=== PATIENT | male | born 1985 | race Caucasian/White ===

== ENCOUNTER 2018-07-09 10:28 | Emergency (ER) | payer BC, SELFPAY ==
[~2018-07-09] VITALS: Ht 170.2 cm; Wt 79.4 kg
[2018-07-09 10:33] VITALS: BP 135/76
[2018-07-09] MEDS ORDERED: CYCL10TA2 PO (11:11)
--- NOTE | 2018-07-09 11:12 | PHYS DOC ---
Past Medical History Past Medical History: No Pertinent History Additional Information: non smoker Alcohol Use: None Drug Use: None Adult General Chief Complaint Chief Complaint: BACK PAIN OR INJURY HPI HPI Patient is a 33 year old male that presents with lower back pain after lifting shingles over his head yesterday. The pain is located in the left lower portion of his back. He states that it hurt for 5-10 minutes after it happened and then it stopped and started again this AM. He has not tried any medication at home. Pain when he moves is 8/10 and sharp. Review of Systems Review of Systems Constitutional: Denies fever or chills [] Eyes: Denies change in visual acuity, redness, or eye pain [] HENT: Denies nasal congestion or sore throat [] Respiratory: Denies cough or shortness of breath [] Cardiovascular: No additional information not addressed in HPI [] GI: Denies abdominal pain, nausea, vomiting, bloody stools or diarrhea [] : Denies dysuria or hematuria [] Musculoskeletal: Reports back pain but denies joint pain [] Integument: Denies rash or skin lesions [] Neurologic: Denies headache, focal weakness or sensory changes [] Endocrine: Denies polyuria or polydipsia [] Complete systems were reviewed and found to be within normal limits, except as documented in this note. Current Medications Current Medications Current Medications Medications (Trade) Dose Ordered Sig/Myron Start Time Stop Time Status Last Admin Dose Admin Cyclobenzaprine HCl (Flexeril) 10 mg 1X ONCE 07/09/18 11:15 07/09/18 11:16 07/09/18 11:04 10 MG Allergies Allergies Allergies Coded Allergies Type Severity Reaction Last Updated Verified No Known Drug Allergies 07/09/18 No Physical Exam Physical Exam Constitutional: Well developed, well nourished, no acute distress, non-toxic appearance. [] HENT: Normocephalic, atraumatic, bilateral external ears normal, oropharynx moist, no oral exudates, nose normal. [] Eyes: PERRLA, EOMI, conjunctiva normal, no discharge. [] Neck: Normal range of motion, no tenderness, supple, no stridor. [] Cardiovascular:Heart rate regular rhythm, no murmur [] Lungs & Thorax: Bilateral breath sounds clear to auscultation [] Abdomen: Soft, no tenderness, no masses, no pulsatile masses. [] Skin: Warm, dry, no erythema, no rash. [] Back: No tenderness to spine, no step-offs, no CVA tenderness. [] Extremities: No tenderness, no cyanosis, no clubbing, ROM intact, no edema. [] Neurologic: Alert and oriented X 3, normal motor function, normal sensory function, no focal deficits noted. [] Psychologic: Affect normal, judgement normal, mood normal. [] Current Patient Data Vital Signs Vital Signs Date Time Temp Pulse Resp B/P (MAP) Pulse Ox O2 Delivery O2 Flow Rate FiO2 07/09/18 10:33 97.8 58 135/76 (95) 98 Room Air 97.8 EKG EKG [] Radiology/Procedures Radiology/Procedures [] Course & Med Decision Making Course & Med Decision Making Pertinent Labs and Imaging studies reviewed. (See chart for details) Discussed symptoms with patient. Used shared medical decision making and the patient decided that he would wait for xray if it continues. Will treat with muscle relaxer here and then send home on muscle relaxer. Patient is agreeable. Dragon Disclaimer Dragon Disclaimer This electronic medical record was generated, in whole or in part, using a voice recognition dictation system. Departure Departure Impression: Primary Impression: Pain in lower back Disposition: 01 HOME, SELF-CARE Condition: STABLE Referrals: UNKNOWN PCP NAME (PCP) Patient Instructions: Back Pain, Adult Additional Instructions: Follow up with primary care doctor if pain does not improve or come back to ER. Take muscle relaxers and ibuprofen as directed PRN. Scripts Cyclobenzaprine Hcl (CYCLOBENZAPRINE HCL) 10 Mg Tablet 1 TAB PO TID PRN for MUSCLE SPASMS, #30 TAB Prov: MOO NIETO APRN 07/09/18 Problem Qualifiers Primary Impression: Pain in lower back Chronicity: acute Back pain laterality: left Sciatica presence: without sciatica Qualified Codes: M54.5 - Low back pain MOO NIETO APRN July 09, 2018 11:12
[2018-07-09] MEDS ORDERED: CYCLOBENZAPRINE 10 MG TABLET. PO ONE (11:15)
== END 2018-07-09 11:30 | disposition home or self-care (01) ==
LOC: ER 10:28
DX: M54.5 Low back pain (principal)
CPT/HCPCS: 99283

== ENCOUNTER 2019-12-19 22:29 | Emergency (ER) | payer BC ==
[~2019-12-19] VITALS: Ht 170.2 cm; Wt 81.8 kg
[~2019-12-19 22:29] MED LIST: CYCL10TA2 PO
[2019-12-19] MEDS ORDERED: LIDOCAINE 2%/EPI 1:100,000 20 ML VIAL. INJ ONE (22:45)
[2019-12-19] MEDS ORDERED: NEOMY/BACITR/POLYMYXIN OINT PACKET. TP ONE (22:45)
[2019-12-19] MEDS ORDERED: CEPHALEXIN 250 MG CAPSULE. PO ONE (22:45)
[2019-12-19] MEDS ORDERED: HYDROcodone/APAP 5/325MG 1 TAB TABLET PO ONE (23:15)
[2019-12-19] MEDS ORDERED: HYDR-3164 PO (23:15)
--- NOTE | 2019-12-19 23:15 | PHYS DOC ---
Past Medical History Past Medical History: No Pertinent History Past Surgical History: Other Additional Past Surgical Histo: KNEE SURGERY Smoking Status: Never Smoker Alcohol Use: None Drug Use: None General Adult EDM: Chief Complaint: FINGER INJURY HPI: HPI: Patient is a 34 year old white male who presents with Left 5th phalanx injury. Patient states that he was chopping wood. He missed and hit the dorsal aspect of his Left fifth phalanx with a "2lb steel hammer". Pain is sharp, throbbing and rated a 6/10. He experienced paresthesia after hitting his finger but denies any numbness or tingling now. Patient did not take any medication at this time and notes movement aggravates pain. Patient has past history of Left hand injury that was treated with three screws in 2nd metacarpal bone. Review of Systems: Review of Systems: Constitutional: Denies fever Eyes: Denies redness or eye pain HENT: Admits nasal congestion. Denies sore throat Respiratory: Denies cough or shortness of breath Cardiovascular: Denies chest pain or palpitations GI: Denies abdominal pain, nausea, or vomiting : Denies dysuria or hematuria Musculoskeletal: Denies back pain; reports left 5th digit pain and swelling Integument: Denies rash or skin lesions; reports bruising to left 5th digit Neurologic: Denies headache, focal weakness or sensory changes Complete systems were reviewed and found to be within normal limits, except as documented in this note. Current Medications: Current Medications Medications (Trade) Dose Ordered Sig/Myron Start Time Stop Time Status Last Admin Dose Admin Acetaminophen/ Hydrocodone Bitart (Lortab 5/325) 1 tab 1X ONCE 12/19/19 23:15 12/19/19 23:16 Cephalexin HCl (Keflex) 500 mg 1X ONCE 12/19/19 22:45 12/19/19 22:46 DC Lidocaine/ Epinephrine (LIDOCAINE 2%-EPI 1:100,000 multi-dose) 20 ml 1X ONCE 12/19/19 22:45 12/19/19 22:46 DC Neomycin/ Polymyxin/ Bacitracin (Triple Antibiotic Ointment) 1 pkt 1X ONCE 12/19/19 22:45 12/19/19 22:46 DC Allergies: Allergies: Allergies Coded Allergies Type Severity Reaction Last Updated Verified No Known Drug Allergies 07/09/18 No Physical Exam: PE: Constitutional: Well developed, well nourished, no acute distress, non-toxic appearance HENT: Normocephalic, atraumatic Eyes: Conjunctiva normal, no discharge Neck: Normal range of motion, no tenderness, supple Lungs & Thorax: No respiratory distress, equal chest rise and fall Skin: Warm, dry, no erythema, no rash, mild ecchymosis and swelling to proximal phalanx of left finger Extremities: Tenderness to proximal Left 5th phalanx, intact sensation, present edema in proximal left 5th phalanx Neurologic: Alert and oriented X 3, normal motor function, normal sensory function, no focal deficits noted Psychologic: Affect normal, judgment normal Current Patient Data: Vital Signs: Vital Signs Date Time Temp Pulse Resp B/P (MAP) Pulse Ox O2 Delivery O2 Flow Rate FiO2 12/19/19 22:30 98.5 62 16 150/54 (86) 99 Room Air 98.5 Radiology/Procedures: Impression: PROCEDURE: HAND LEFT 3V Exam: Left hand 3 views INDICATION: Fifth digit injury TECHNIQUE: Frontal, lateral and oblique views of the left hand Comparisons: None FINDINGS: Minimally displaced fracture involving the proximal phalanx fifth digit seen best on oblique view. No other fractures are identified. Mild surrounding soft tissue swelling. Joint spaces are well-maintained. Fixation screws at the third metacarpal noted. IMPRESSION: Minimally displaced fracture involving the proximal phalanx of the fifth digit seen best on oblique view. Electronically signed by: Shaw Vale MD (12/19/2019 11:18 PM) [facility] Course & Med Decision Making: Course & Med Decision Making Patient is a 34yo white male who presents with finger injury. Patient hit his left 5th finger with a 2lb steel hammer. He did not take any pain medications. He was seen and examined which showed significant swelling and tenderness to Left proximal 5th phalanx. X-ray demonstrated nondisplaced fracture of the Left proximal 5th phalanx. Patient was given hydrocodone/acetaminophen 5/325 and finger was placed into splint. Patient stable for discharge with outpatient follow-up with PCP/orthopedics. Orthopedic referral provided. Discussed findings and plan with patient, who acknowledges understanding and agreement. Sherice Disclaimer: Sherice Disclaimer: This electronic medical record was generated, in whole or in part, using a voice recognition dictation system. Splinting Splinting : Location: Left 5th finger Pre-Made Type: metal (finger splint) Pre-Proc Neuro Vasc Exam: normal Post-Proc Neuro Vasc Exam: normal, unchanged from pre-exam Departure Departure Impression: Primary Impression: Proximal phalanx fracture of finger Qualified Codes: S62.647A - Nondisplaced fracture of proximal phalanx of left little finger, initial encounter for closed fracture Disposition: 01 DC HOME SELF CARE/HOMELESS Condition: STABLE Referrals: NO PCP (PCP) JAYA VILLEDA MD Patient Instructions: Finger Fracture, [id number], Splint Care, [id number] Scripts Hydrocodone/Apap 5-325 (NORCO 5-325 TABLET) 1 Each Tablet 0.5-1 TAB PO PRN Q6HRS PRN for PAIN, #10 TAB 0 Refills Prov: MOO OKEEFE DO 12/19/19 MOO OKEEFE DO Dec 19, 2019 23:15
--- NOTE | 2019-12-19 23:21 | RAD ---
Exam: Left hand 3 views INDICATION: Fifth digit injury TECHNIQUE: Frontal, lateral and oblique views of the left hand Comparisons: None FINDINGS: Minimally displaced fracture involving the proximal phalanx fifth digit seen best on oblique view. No other fractures are identified. Mild surrounding soft tissue swelling. Joint spaces are well-maintained. Fixation screws at the third metacarpal noted. IMPRESSION: Minimally displaced fracture involving the proximal phalanx of the fifth digit seen best on oblique view. Electronically signed by: Shaw Vale MD (12/19/2019 11:18 PM) JORGE A
[2019-12-19 23:25] VITALS: BP 145/91
== END 2019-12-19 23:25 | disposition home or self-care (01) ==
LOC: ER 22:29
DX: S62.617A Displaced fracture of proximal phalanx of left little finger, initial encounter for closed fracture (principal); W22.8XXA Striking against or struck by other objects, initial encounter; Y93.89 Activity, other specified; Y92.89 Other specified places as the place of occurrence of the external cause; Y99.8 Other external cause status
CPT/HCPCS: 29130; 73130; 99283